=== PATIENT | female | born 1960 | race Hispanic/Latino ===

== ENCOUNTER 2021-07-02 04:38 | Emergency (ER) | payer OTHER ==
[~2021-07-02] VITALS: Ht 152.4 cm; Wt 73.5 kg
[2021-07-02 05:29] LABS: BASOPHILS % (AUTO) 0.2 % (0.0-5.0); HEMATOCRIT 39.6 % (36-48); LYMPHOCYTES % (AUTO) 13.6 % (21.0-51.0); MEAN CORPUSCULAR HEMOGLOBIN 28.5 pg (27.0-33.0); MEAN CORPUSCULAR HGB CONC 33.6 g/dL (32.0-36.0); MONOCYTES % (AUTO) 2.9 % (3.0-13.0); NEUTROPHILS % (AUTO) 82.8 % (40.0-77.0); PLATELET COUNT (AUTO) 171 K/uL (130-400); RED BLOOD CELL COUNT(AUTO) 4.66 MIL/uL (4.00-5.50); RED CELL DISTRIBUTION WIDTH 12.7 % (11.0-15.5); WHITE BLOOD COUNT (AUTO) 5.5 K/uL (4.8-10.8)
[2021-07-02 05:30] LABS: APPEARANCE,URINE Clear (CLEAR); BILIRUBIN,URINE Negative (NEGATIVE); COLOR,URINE Dark Yellow (YELLOW); GLUCOSE, URINE (UA) Negative (NEGATIVE); KETONES,URINE Trace mg/dL (NEGATIVE); LEUKOCYTE ESTERASE ,URINE Trace (NEGATIVE); NITRATE,URINE Negative (NEGATIVE); OCCULT BLOOD,URINE Negative (NEGATIVE); PROTEIN,URINE POS 2+ mg/dL (NEGATIVE)
[2021-07-02] MEDS ORDERED: PANTOPRAZOLE 40 MG/VIAL IVP ONE (05:30)
[2021-07-02] MEDS ORDERED: ACETAMINOPHEN 500 MG TABLET PO ONE (05:30)
[2021-07-02] MEDS ORDERED: 0.9%NACL 1000ML 1,000 ML IV ONE (05:30)
[2021-07-02] MEDS ORDERED: METOCLOPRAMIDE 10 MG/2 ML VIAL IVP ONE (05:30)
[2021-07-02] MEDS ORDERED: ONDANSETRON 4MG INJ IVP ONE (05:30)
[2021-07-02] MEDS ORDERED: FAMOTIDINE 20MG VIAL IV ONE (05:30)
[2021-07-02 05:35] LABS: POTASSIUM 3.9 mmol/L (3.5-5.1)
[2021-07-02 05:39] LABS: ALBUMIN 3.7 g/dL (3.5-5.0); BILIRUBIN,TOTAL 0.5 mg/dL (0.2-1.0); TOTAL PROTEIN, SERUM 7.8 g/dL (6.0-8.3)
[2021-07-02 05:45] LABS: BACTERIA,URINE None Seen /HPF (None Seen); SQUAMOUS EPITHELIAL CELL,UR Few /HPF (0-2); WBC,URINE 0-1 /HPF (0-1)
[2021-07-02 05:46] LABS: OTHER CASTS, URINE WBC CASTS 1+ /LPF (None Seen)
[2021-07-02] MEDS ORDERED: IOHEXOL 350 MG/ML 100ML INFUS..BTL IV ONE (06:16)
[2021-07-02 09:49] VITALS: BP 151/77
[2021-07-02] MEDS ORDERED: CEPH500B PO (11:04)
[2021-07-02] MEDS ORDERED: OMEP40CA21 PO (11:04)
[2021-07-02] MEDS ORDERED: CEFTRIAXONE 1G VIAL IVP ONE (12:00)
[2021-07-02] MEDS ORDERED: PANTOPRAZOLE 40 MG/VIAL IVP SCH (12:00)
== END 2021-07-02 11:50 | disposition home or self-care (01) ==
LOC: EDH 04:38
DX: U07.1 COVID-19 (principal); R10.13 Epigastric pain; R11.2 Nausea with vomiting, unspecified; Z79.899 Other long term (current) drug therapy
CPT/HCPCS: 36415; 74177; 76705; 80053; 81001; 83690; 84484; 85025; 87040 ×2; 87088; 87635; 93005; 96361; 96374; 96375; 99285; C9113; C9803; J2405; J2765; J3490; Q9967